=== PATIENT | female | born 1960 | race Caucasian/White ===

== ENCOUNTER 2017-09-03 19:46 | Emergency (ER) | payer MEDICAID ==
--- NOTE | 2017-09-03 20:08 | EDM.PDOC ---
ED HPI GENERAL MEDICAL PROBLEM - General Stated Complaint: R FOOT/TOE PAIN Time Seen by Provider: 09/03/17 20:08 Source of Information: Reports: Patient History Limitations: Reports: No Limitations Right Leg Pain Score (Numeric/FACES): 7 Departure - Discharge Information Referrals: PCP,None [Primary Care Provider] -
[2017-09-03] MEDS ORDERED: Fluconazole 150 MG Tab PO ONE (20:09)
[2017-09-03] MEDS ORDERED: cefTRIAXone 1,000 MG in Lidocaine 1% 4 ML IM ONE (20:09)
--- NOTE | 2017-09-03 20:15 | EDM.PDOC ---
ED HPI GENERAL MEDICAL PROBLEM - General Stated Complaint: R FOOT/TOE PAIN Time Seen by Provider: 09/03/17 20:08 Source of Information: Reports: Patient - History of Present Illness INITIAL COMMENTS - FREE TEXT/NARRATIVE: HISTORY AND PHYSICAL: History of present illness: [ Patient was visiting last week with some family members, should take a shower in their home and developed athlete's foot involving the right fourth and fifth toes, she is been using some [id number] symptomatic treatments and Epsom soaks symptoms have worsened over the last week and secondarily has become red more tender, now having some warmth on the anterior golden as well as mild redness and tenderness in an area approximately 3 inches wide and 8 inches long on the anterior golden of the right lower extremity No fever nausea vomiting chills sweats no chest pain shortness breath headache dizziness or palpitation no bowel or urine symptoms ] Review of systems: As per history of present illness and below otherwise all systems reviewed and negative. Past medical history: As per history of present illness and as reviewed below otherwise noncontributory. Surgical history: As per history of present illness and as reviewed below otherwise noncontributory. Social history: No reported history of drug or alcohol abuse. Family history: As per history of present illness and as reviewed below otherwise noncontributory. Physical exam: HEENT: Atraumatic, normocephalic, pupils reactive, negative for conjunctival pallor or scleral icterus, mucous membranes moist, throat clear, neck supple, nontender, trachea midline. Lungs: Clear to auscultation, breath sounds equal bilaterally, chest nontender. Heart: S1S2, regular, negative for clicks, rubs, or JVD. Abdomen: Soft, nondistended, nontender. Negative for masses or hepatosplenomegaly. Negative for costovertebral tenderness. Pelvis: Stable nontender. Genitourinary: Deferred. Rectal: Deferred. Extremities: Atraumatic, negative for cords or calf pain. Neurovascular unremarkable. Neuro: Awake, alert, oriented. Cranial nerves II through XII unremarkable. Cerebellum unremarkable. Motor and sensory unremarkable throughout. Exam nonfocal. Skin as per history of present illness Diagnostics: [Wound culture ] Therapeutics: [1 g Rocephin IM Cleocin 300 mg by mouth 3 times a day #30 no refill Diflucan 100 mg by mouth twice a day #20 no refill [id number] symptomatic therapies discussed code culture Chlortrimazole or ketoconazole may benefit ] Impression: [Athlete's foot/tinea pedis Cellulitis right lower extremity] Definitive disposition and diagnosis as appropriate pending reevaluation and review of above. Right Leg Pain Score (Numeric/FACES): 7 - Related Data Allergies Allergy/AdvReac Type Severity Reaction Status Date / Time sulfamethoxazole Allergy Rash Verified 09/03/17 20:10 [From Bactrim] trimethoprim [From Bactrim] Allergy Rash Verified 09/03/17 20:10 Home Meds: Home Meds Atenolol 50 mg PO DAILY 09/03/17 [History] ED ROS GENERAL - Review of Systems Review Of Systems: ROS reveals no pertinent complaints other than HPI. ED EXAM, GENERAL - Physical Exam Exam: See Below Course - Vital Signs Last Recorded V/S: Last Vital Signs Temp 99.2 F 09/03/17 20:06 Pulse 88 09/03/17 20:06 Resp 20 09/03/17 20:06 BP 137/70 09/03/17 20:06 Pulse Ox 95 09/03/17 20:06 - Orders/Labs/Meds Meds: Medications Discontinued Medications Generic Name Dose Route Start Last Admin Trade Name Freq PRN Reason Stop Dose Admin Fluconazole 150 mg 09/03/17 20:09 Diflucan PO 09/03/17 20:10 ONETIME ONE Ceftriaxone Sodium 1,000 mg/ 4 mls @ 4 mls/sec 09/03/17 20:09 Lidocaine HCl IM 09/03/17 20:10 ONETIME ONE Departure - Departure Time of Disposition: 20:13 Disposition: Home, Self-Care 01 Condition: Good Clinical Impression: Athletes foot, Cellulitis - Discharge Information Referrals: PCP,None [Primary Care Provider] - Additional Instructions: Medications as prescribed Epsom salts may benefit 2-3 times daily, along with the foot to air dry after soaks until completely dried, or dry with a co founder and chairman on cool air Chlortrimazole or Chlortrimazole is an ointment or cream which may be may be used 3 times daily on the affected toes Follow-up with primary care in 1 weeks sooner as needed Return to emergency room if fever nausea vomiting chills sweats or worsening of symptoms despite antibiotics [facility] [address] [place] [id number] The following information is given to patients seen in the emergency department who are being discharged to home. This information is to outline your options for follow-up care. We provide all patients seen in our emergency department with a follow-up referral. The need for follow-up, as well as the timing and circumstances, are variable depending upon the specifics of your emergency department visit. If you don't have a primary care physician on staff, we will provide you with a referral. We always advise you to contact your personal physician following an emergency department visit to inform them of the circumstance of the visit and for follow-up with them and/or the need for any referrals to a consulting specialist. The emergency department will also refer you to a specialist when appropriate. This referral assures that you have the opportunity for follow-up care with a specialist. All of these measure are taken in an effort to provide you with optimal care, which includes your follow-up. Under all circumstances we always encourage you to contact your private physician who remains a resource for coordinating your care. When calling for follow-up care, please make the office aware that this follow-up is from your recent emergency room visit. If for any reason you are refused follow-up, please contact the [facility] emergency department at and asked to speak to the emergency department charge nurse.
== END 2017-09-03 21:05 | disposition home or self-care (01) ==
LOC: MW.ED 19:46
DX: B35.3 Tinea pedis (principal); L03.115 Cellulitis of right lower limb; Z79.899 Other long term (current) drug therapy; Z88.1 Allergy status to other antibiotic agents; Z88.2 Allergy status to sulfonamides
CPT/HCPCS: 87070; 87077; 87186; 96372; 99283; A9270; J0696